=== PATIENT | female | born 2000 | race American Indian/Alaskan Native ===

== ENCOUNTER 2022-04-24 22:21 | Outpatient (CLI) | payer OTHER ==
[2022-04-24 22:48] VITALS: BP 105/58
[2022-04-24] MEDS ORDERED: LACTATED RINGERS 1,000 ML ONE (22:58)
[2022-04-24 23:25] LABS: Bacteria,Urine 2+ /HPF (Negative); Bilirubin,Urine NEG (Negative); Blood,Urine NEG (Negative); Color,Urine Amber (Yellow); Mucus,Urine FEW /HPF
[2022-04-25] MEDS ORDERED: MINERAL OIL 30 ML ORAL LIQD PO PRN (02:06)
[2022-04-25] MEDS ORDERED: AMPICILLIN/NS 2 GM/100 ML 2 GM/100 ML BAG IV ONE (02:06)
[2022-04-25] MEDS ORDERED: ONDANSETRON 4 MG/2 ML INJ IV PRN (02:06)
[2022-04-25] MEDS ORDERED: OXYTOCIN 10 UNIT/1 ML INJ IM PRN (02:06)
[2022-04-25] MEDS ORDERED: LOPERAMIDE 2 MG CAP PO PRN (02:06)
[2022-04-25] MEDS ORDERED: PROMETHAZINE 25 MG TAB PO PRN (02:06)
[2022-04-25] MEDS ORDERED: ePHEDrine SULFATE 50 MG/1 ML INJ IV PRN (02:06)
[2022-04-25] MEDS ORDERED: LIDOCAINE (2%) 20 MG/1 ML VIAL 20 ML MDV INFILTRATI ONE (02:06)
[2022-04-25] MEDS ORDERED: CARBOPROST TROMETHAMINE 250 MCG/1 ML INJ IM PRN (02:06)
[2022-04-25] MEDS ORDERED: TERBUTALINE 1 MG/1 ML INJ SUB-Q PRN (02:06)
[2022-04-25] MEDS ORDERED: BUTORPHANOL 2 MG/1 ML INJ IV PRN (02:06)
[2022-04-25] MEDS ORDERED: miSOPROStol 200 MCG TAB PR PRN (02:06)
[2022-04-25] MEDS ORDERED: ACETAMINOPHEN 325 MG TAB PO PRN (02:06)
[2022-04-25] MEDS ORDERED: NALOXONE 0.4 MG/1 ML INJ IV PRN (02:06)
[2022-04-25] MEDS ORDERED: fentaNYL 100 MCG/2 ML INJ IV PRN (02:06)
[2022-04-25] MEDS ORDERED: METHYLERGONOVINE MALEATE 0.2 MG/ML VIAL IM PRN (02:06)
[2022-04-25] MEDS ORDERED: LACTATED RINGERS 1,000 ML IV SCH (02:15)
--- NOTE | 2022-04-25 02:15 | History and Physical Report ---
History of Present Illness Date of examination: 04/25/22 Date of admission: 04/25/2022 Chief complaint: I'm having contractions. Past History - Obstetrical History : 4 Medications and Allergies Allergies Allergy/AdvReac Type Severity Reaction Status Date / Time No Known Allergies Allergy Unverified 04/24/22 22:46 Active Meds: Active Medications Acetaminophen (Acetaminophen 325 Mg Tab) 650 mg PO Q4H PRN PRN Reason: Pain, Mild (1-3) Butorphanol Tartrate (Butorphanol 2 Mg/1 Ml Inj) 1 mg IV Q2H PRN PRN Reason: Pain, Moderate(4-6) LABOR PAIN Carboprost Tromethamine (Carboprost Tromethamine 250 Mcg/1 Ml Inj) 250 mcg IM ONCE PRN PRN Reason: Uterine Bleeding Ephedrine Sulfate (Ephedrine Sulfate 50 Mg/1 Ml Inj) 10 mg IV Q2M PRN PRN Reason: Hypotension Fentanyl (Fentanyl 100 Mcg/2 Ml Inj) 100 mcg IV Q2H PRN PRN Reason: Pain,Severe (7-10) LABOR PAIN Oxytocin/Sodium Chloride (Pitocin/Ns 30 Unit/500ml) 30 units in 500 mls @ 2 mls/hr IV TITR HARRISON; Protocol Lactated Ringer's (Lactated Ringers) 1,000 mls @ 125 mls/hr IV DIRECT HARRISON Oxytocin/Sodium Chloride (Pitocin/Ns 30 Unit/500ml) 30 units in 500 mls @ 40 mls/hr IV TITR HARRISON; Protocol Ampicillin Sodium (Ampicillin/Ns 2 Gm/100 Ml) 2 gm in 100 mls @ 100 mls/hr IV ONCE ONE; Protocol Stop: 04/25/22 03:05 Loperamide HCl (Loperamide 2 Mg Cap) 2 mg PO ONCE PRN PRN Reason: give with Hemabate Methylergonovine Maleate (Methylergonovine Maleate 0.2 Mg/Ml Vial) 0.2 mg IM ONCE PRN PRN Reason: Uterine Bleeding Mineral Oil (Mineral Oil 30 Ml Oral Liqd) 30 ml PO QHS PRN PRN Reason: Constipation Misoprostol (Misoprostol 200 Mcg Tab) 800 mcg WI ONCE PRN PRN Reason: Uterine Bleeding Naloxone HCl (Naloxone 0.4 Mg/1 Ml Inj) 0.1 mg IV Q2MIN PRN PRN Reason: Res Rate </= 8 or 02 SAT < 92% Ondansetron HCl (Ondansetron 4 Mg/2 Ml Inj) 4 mg IV Q8H PRN PRN Reason: Nausea And Vomiting Oxytocin (Oxytocin 10 Unit/1 Ml Inj) 10 unit IM ONCE PRN PRN Reason: Uterine Bleeding Promethazine HCl (Promethazine 25 Mg Tab) 25 mg PO Q6H PRN PRN Reason: Nausea And Vomiting Terbutaline Sulfate (Terbutaline 1 Mg/1 Ml Inj) 0.25 mg SUB-Q ONCE PRN PRN Reason: Hyperstimulation/Hypertonicity - Vital Signs Vital signs: Vital Signs Temp Resp Pulse Ox 98.0 F 14 100 04/24/22 22:39 04/24/22 22:39 04/24/22 22:39 Temp Pulse Resp BP Pulse Ox 98.0 F 100 H 14 105/58 100 04/24/22 22:39 04/25/22 02:11 04/24/22 22:39 04/24/22 22:46 04/25/22 02:11 Results Abnormal lab results 04/24/22 Range/Units 22:51 Urine WBC (Auto) 7.0 H (0.0-6.0) /HPF U Epithel Cells (Auto) 21.0 H (0-13.0) /HPF All other labs normal.
--- NOTE | 2022-04-25 02:55 | Event Note ---
Date: 04/25/22 Pt is a 22 y.o. @ 40.6 wks, with EDC of 04/19/2022. States she was given this EDC by [facility]. Pt was to delivery at [facility]. She presented today due to contractions. Per the baby stroller rental clerk she was FT/thick/high. EFW [id number]. Her monitor strip upon admission to triage was category 2 (minimal variability with some variable decelerations noted toward beginning of strip). A BPP was ordered and resulted as 07/06, but the monitor strip remained category 2 throughout her triage stay. Consulted with Dr. Mathew. Pt to be admi tted to labor and delivery of IOL. Discussed with patient that an IOL was needed d/t monitor strip being category 2. Explained that a category 2 monitor tracing shows that the baby is in distress. Pt states "I can't have my momma here when I deliver? I don't want to deliver without my momma and while I am in custody." Explained to patient the risk of leaving with a category 2 tracing: patient becoming sick, and/or having a stillborn. "I will take that risk because I need my momma with me when I deliver. I do NOT want to deliver while I'm in custody. I can't hold my baby, see my baby, I'll be chained to the bed. I DO NOT want that." AMA form signed by patient. Pt left in custody of [facility] Officers.
[2022-04-25] MEDS ORDERED: OXYTOCIN DRIP 30 UNITS/500 ML BAG IV SCH ×2 (03:00)
--- NOTE | 2022-04-25 03:26 | Ultrasound Report ---
US OB BPP wo non-stress, US OB limited, US OB >= 14 weeks Fetus INDICATION / CLINICAL INFORMATION: well being COMPARISON: None available. TECHNIQUE: Using a transcutaneous probe, multiple grayscale, color Doppler, and spectral Doppler imag es of the uterus and fetus were captured and stored. Additionally, biophysical profile was performed. FINDINGS: Single cephalic fetus with heart rate of 155 bpm is demonstrated. The amniotic fluid index is 8.6 cm, within normal limits. Biparietal Diameter = 9.57 cm = 38, 2 weeks, days Head Circumference = 31.9 cm = 36, 0 weeks, days Abdominal Circumference = 35.5 cm = 39, 3 weeks, days Femur Length = 6.48 cm = 33, 5 weeks, days Average Ultrasound Age (AUA) = 36,6 weeks, days. EDC 05/17/2022. Clinical estimated gestational age is 40 weeks 6 days. Estimated weight = 3265 g. BREATHING MOVEMENT = 2 GROSS BODY MOVEMENT = 2 TONE = 2 QUALITATIVE AMNIOTIC FLUID VOLUME = 2 TOTAL BIOPHYSICAL SCORE = 8/8 IMPRESSION: 1. Single living intrauterine gestation with estimated composite gestational age of 36 weeks 6 days. 2. Normal biophysical profile, score 8/8. 3. Normal amniotic fluid index. Signer Name: Henri Noriega II, MD Signed: 04/25/2022 3:22 AM Workstation Name: [id number]
== END 2022-04-25 05:08 | disposition left against medical advice (07) ==
LOC: TRG 22:21 → EEVIPCON 22:21 → APU 22:22 → TRG 04-25 05:08
PROVIDERS: ATTEND Obstetrics & Gynecology
DX: O62.9 Abnormality of forces of labor, unspecified (principal); O48.0 Post-term pregnancy; Z3A.40 40 weeks gestation of pregnancy
CPT/HCPCS: 59025; 76805; 76815; 76816; 76819; 81001; 96360